=== PATIENT | female | born 1950 | race Caucasian/White ===

== ENCOUNTER 2018-11-20 07:28 | Day surgery (SDC) | payer MEDICARE, MEDICAID ==
[~2018-11-20] VITALS: Ht 157.5 cm; Wt 106.2 kg
[2018-11-20 08:00] VITALS: BP 140/67
[2018-11-20] MEDS ORDERED: normal saline 1000ml 1,000 ML IV PRN (08:05)
[2018-11-20 08:28] LABS: HEMATOCRIT 32.2 % (35.0-45.0); MEAN CORPUSCULAR HGB CONC 33.1 g/dL (33.0-36.5); WHITE BLOOD COUNT 3.5 X10'3 (4.5-11.0)
[2018-11-20 08:30] LABS: HEMOGLOBIN 10.6 g/dl (12.0-16.0); MEAN CORPUSCULAR VOLUME 96.6 FL (78-98); PLATELET COUNT 70 X10'3 (140-440); RED BLOOD COUNT 3.33 X10'6 (4.20-5.60); RED CELL DISTRIBUTION WIDTH 18.3 % (11.5-14.5)
[2018-11-20 08:34] LABS: ALBUMIN 3.4 G/DL (3.4-5.0); ANION GAP 6 (8-16); BLOOD UREA NITROGEN 42 MG/DL (7-18); BUN/CREATININE RATIO 8.5 (6.6-38.0); CALCIUM 8.4 MG/DL (8.5-10.1); CHLORIDE 103 MMOL/L (99-107); CREATININE 4.95 MG/DL (0.40-0.90); GLUCOSE 338 MG/DL (70-104); POTASSIUM 4.4 MMOL/L (3.5-5.1); SODIUM 143 MMOL/L (135-145); TOTAL CARBON DIOXIDE 34.4 MMOL/L (24-32); eGFR 9 ML/MIN
[2018-11-20] MEDS ORDERED: AMLO2.5T4 PO (09:18)
[2018-11-20 09:27] LABS: ANISOCYTOSIS 2+; PLATELET ESTIMATE DECREASED; STOMATOCYTES 1+; TOTAL CELLS COUNTED 100
[2018-11-20] MEDS ORDERED: SEVE800T7 PO (09:30)
[2018-11-20] MEDS ORDERED: DOXA2TAB2 PO (09:30)
[2018-11-20] MEDS ORDERED: HYDR-3686 PO (09:30)
[2018-11-20] MEDS ORDERED: AMLO2.5T2 PO (09:30)
[2018-11-20] MEDS ORDERED: FAMO20TA8 PO (09:30)
[2018-11-20] MEDS ORDERED: ROPI2TAB29 PO (09:30)
[2018-11-20] MEDS ORDERED: TIZA4CAP6 PO (09:30)
[2018-11-20] MEDS ORDERED: LYR75C PO ×2 (09:30)
[2018-11-20] MEDS ORDERED: ATOR40TA PO (09:30)
[2018-11-20] MEDS ORDERED: ALLO100T PO (09:36)
[2018-11-20] MEDS ORDERED: BENA10TA74 PO (09:36)
[2018-11-20] MEDS ORDERED: INSU100V13 SQ (09:36)
[2018-11-20] MEDS ORDERED: ASPI-1265 PO (09:36)
[2018-11-20] MEDS ORDERED: midazolam 2 mg/2 ml injection ONE (11:15)
[2018-11-20] MEDS ORDERED: fentaNYL/PF 50MCG/1 ML 2ML syringe ONE (11:15)
[2018-11-20] MEDS ORDERED: midazolam 2 mg/2 ml injection IV PRN (11:15)
[2018-11-20] MEDS ORDERED: LIDOcaine 1% (10mg/ml) 2ml vial SQ ONE (11:15)
[2018-11-20] MEDS ORDERED: LIDOcaine 1%/PF 5ML 10 MG/ML VIAL ONE (11:15)
[2018-11-20] MEDS ORDERED: fentaNYL/PF 50MCG/1 ML 2ML syringe IV PRN (11:15)
[2018-11-20] MEDS ORDERED: heparin 1,000 UNITS/NS 500ml 500 ML ICATH ONE (11:15)
[2018-11-20] MEDS ORDERED: heparin 1,000 UNITS/NS 500ml 500 ML ONE (11:16)
[2018-11-20] MEDS ORDERED: iohexol 300mg/ml 100ml inj. ONE (11:16)
[2018-11-20 12:47] VITALS: BP 134/84
[2018-11-20 13:00] VITALS: BP 167/76
[2018-11-20 13:15] VITALS: BP 169/73
[2018-11-20 13:45] VITALS: BP 137/52
[2018-11-20 14:15] VITALS: BP 139/54
== END 2018-11-20 15:10 | disposition home or self-care (01) ==
LOC: SSTAY O 07:28
PROVIDERS: ATTEND Radiology Vascular & Interventional Radiology
DX: T82.858A Stenosis of other vascular prosthetic devices, implants and grafts, initial encounter (principal); Y83.8 Other surgical procedures as the cause of abnormal reaction of the patient, or of later complication, without mention of misadventure at the time of the procedure; E11.9 Type 2 diabetes mellitus without complications; I25.10 Atherosclerotic heart disease of native coronary artery without angina pectoris; I10 Essential (primary) hypertension; E66.9 Obesity, unspecified; Z95.1 Presence of aortocoronary bypass graft; Z79.82 Long term (current) use of aspirin; Z79.899 Other long term (current) drug therapy; Z98.49 Cataract extraction status, unspecified eye; Z96.1 Presence of intraocular lens
CPT/HCPCS: 36415; 36901; 80048; 85025; 85610; 99152; 99153; C1769; J1644; J2250; J3010; J7030; Q9967

== ENCOUNTER 2018-11-22 11:30 | Day surgery (SDC) | payer MEDICARE, MEDICAID ==
[~2018-11-22] VITALS: Ht 162.6 cm; Wt 105.4 kg
[2018-11-22] VITALS (8 sets, daily range): BP systolic 116–198; BP diastolic 56–100
[~2018-11-22 11:30] MED LIST: ALLO100T PO; AMLO2.5T2 PO; ASPI-1265 PO; ATOR40TA PO; BENA10TA74 PO; DOXA2TAB2 PO; FAMO20TA8 PO; HYDR-3686 PO; INSU100V13 SQ; LYR75C PO; ROPI2TAB29 PO; SEVE800T7 PO; TIZA4CAP6 PO
[2018-11-22] MEDS ORDERED: normal saline 1000ml 1,000 ML IV PRN (11:55)
[2018-11-22 12:34] LABS: BASOPHILS % (AUTO) 0.3 % (0-1); EOSINOPHILS # (AUTO) 0.1 X10'3 (0-0.9); EOSINOPHILS % (AUTO) 3.5 % (0-6); HEMATOCRIT 33.2 % (35.0-45.0); LYMPHOCYTES % (AUTO) 25.8 % (21-51); MEAN CORPUSCULAR HEMOGLOBIN 32.5 PG (27.0-31.0); MEAN CORPUSCULAR VOLUME 98.4 FL (78-98); MONOCYTES # (AUTO) 0.4 X10'3 (0-0.9); MONOCYTES % (AUTO) 10.5 % (2-12); NEUTROPHILS # (AUTO) 2.3 X10'3 (1.8-7.7); NEUTROPHILS % (AUTO) 59.9 % (42-75); PLATELET COUNT 84 X10'3 (140-440); RED BLOOD COUNT 3.38 X10'6 (4.20-5.60); RED CELL DISTRIBUTION WIDTH 18.3 % (11.5-14.5); WHITE BLOOD COUNT 3.8 X10'3 (4.5-11.0)
[2018-11-22 12:48] LABS: ALBUMIN 3.4 G/DL (3.4-5.0); ANION GAP 7 (8-16); BLOOD UREA NITROGEN 36 MG/DL (7-18); BUN/CREATININE RATIO 6.3 (6.6-38.0); CALCIUM 8.4 MG/DL (8.5-10.1); CHLORIDE 102 MMOL/L (99-107); CREATININE 5.73 MG/DL (0.40-0.90); GLUCOSE 337 MG/DL (70-104); POTASSIUM 4.2 MMOL/L (3.5-5.1); SODIUM 142 MMOL/L (135-145); TOTAL CARBON DIOXIDE 33.5 MMOL/L (24-32); eGFR 7 ML/MIN
[2018-11-22] MEDS ORDERED: fentaNYL/PF 50MCG/1 ML 2ML syringe IV PRN (12:50)
[2018-11-22] MEDS ORDERED: midazolam 2 mg/2 ml injection IV PRN (12:50)
[2018-11-22] MEDS ORDERED: LIDOcaine 1%/PF 5ML 10 MG/ML VIAL SQ ONE (12:50)
[2018-11-22] MEDS ORDERED: heparin 1,000 UNITS/NS 500ml 500 ML ICATH ONE (12:50)
[2018-11-22 13:17] LABS: PLATELET ESTIMATE DECREASED; TOTAL CELLS COUNTED 100
[2018-11-22 13:18] LABS: ANISOCYTOSIS 2+
[2018-11-22 13:19] LABS: POLYCHROMASIA FEW; STOMATOCYTES FEW
[2018-11-22] MEDS ORDERED: midazolam 2 mg/2 ml injection ONE ×2 (13:34→15:14)
[2018-11-22] MEDS ORDERED: heparin 1,000unit/ml 10ml vial 10 ML ONE (13:34)
[2018-11-22] MEDS ORDERED: LIDOcaine 1%/PF 5ML 10 MG/ML VIAL ONE (13:34)
[2018-11-22] MEDS ORDERED: fentaNYL/PF 50MCG/1 ML 2ML syringe ONE ×2 (13:35→15:14)
[2018-11-22] MEDS ORDERED: heparin 1,000 UNITS/NS 500ml 500 ML ONE ×2 (13:35→15:45)
[2018-11-22] MEDS ORDERED: iohexol 300 MG/1 ML 50ml polymer ONE (13:35)
[2018-11-22] MEDS ORDERED: iohexol 300mg/ml 100ml inj. ONE ×3 (13:35→15:47)
[2018-11-22] MEDS ORDERED: amLODIPine 5mg tablet PO SCH (18:01)
[2018-11-22] MEDS ORDERED: lisinopril 10 MG tablet PO SCH (18:02)
== END 2018-11-22 18:45 | disposition home or self-care (01) ==
LOC: SSTAY O 11:30
PROVIDERS: ATTEND Radiology Vascular & Interventional Radiology
DX: T82.858A Stenosis of other vascular prosthetic devices, implants and grafts, initial encounter (principal); Y83.2 Surgical operation with anastomosis, bypass or graft as the cause of abnormal reaction of the patient, or of later complication, without mention of misadventure at the time of the procedure; Y92.89 Other specified places as the place of occurrence of the external cause; I77.0 Arteriovenous fistula, acquired; I12.0 Hypertensive chronic kidney disease with stage 5 chronic kidney disease or end stage renal disease; N18.6 End stage renal disease; F17.210 Nicotine dependence, cigarettes, uncomplicated; Z88.8 Allergy status to other drugs, medicaments and biological substances; Z79.4 Long term (current) use of insulin; Z79.82 Long term (current) use of aspirin; Z79.899 Other long term (current) drug therapy
CPT/HCPCS: 36415; 36903; 80048; 82948; 85025; 85610; 99152; 99153; C1725; C1769; C1876; C1894; J1644; J2250; J3010; J7030; Q9967

== ENCOUNTER 2018-11-23 12:08 | Day surgery (SDC) | payer MEDICARE, MEDICAID ==
[~2018-11-23] VITALS: Ht 162.6 cm; Wt 106.6 kg
[2018-11-23 12:30] VITALS: BP 148/69
[2018-11-23] MEDS ORDERED: normal saline 1000ml 1,000 ML IV PRN (12:40)
[2018-11-23] MEDS ORDERED: heparin 1,000 units/ml 10ml inj ICATH ONE (13:30)
[2018-11-23] MEDS ORDERED: fentaNYL/PF 50MCG/1 ML 2ML syringe IV PRN (13:30)
[2018-11-23] MEDS ORDERED: midazolam 2 mg/2 ml injection IV PRN (13:30)
[2018-11-23] MEDS ORDERED: LIDOcaine 1%/PF 5ML 10 MG/ML VIAL ONE (13:37)
[2018-11-23] MEDS ORDERED: heparin 1,000unit/ml 10ml vial 10 ML ONE (13:37)
[2018-11-23] MEDS ORDERED: fentaNYL/PF 50MCG/1 ML 2ML syringe ONE (13:37)
[2018-11-23] MEDS ORDERED: midazolam 2 mg/2 ml injection ONE (13:37)
[2018-11-23 14:36] VITALS: BP 167/82
[2018-11-23 14:45] VITALS: BP 158/84
[2018-11-23 15:00] VITALS: BP 152/84
[2018-11-23 15:15] VITALS: BP 123/67
[2018-11-23 15:30] VITALS: BP 136/72
== END 2018-11-23 15:45 | disposition home or self-care (01) ==
LOC: SSTAY O 12:08
PROVIDERS: ATTEND Radiology Diagnostic Radiology
DX: T82.868A Thrombosis due to vascular prosthetic devices, implants and grafts, initial encounter (principal); E11.22 Type 2 diabetes mellitus with diabetic chronic kidney disease; N18.9 Chronic kidney disease, unspecified; I25.10 Atherosclerotic heart disease of native coronary artery without angina pectoris; Y83.8 Other surgical procedures as the cause of abnormal reaction of the patient, or of later complication, without mention of misadventure at the time of the procedure; Z79.82 Long term (current) use of aspirin; Z79.899 Other long term (current) drug therapy; Z88.8 Allergy status to other drugs, medicaments and biological substances; Z79.4 Long term (current) use of insulin; Z95.1 Presence of aortocoronary bypass graft; Z95.5 Presence of coronary angioplasty implant and graft; Z98.890 Other specified postprocedural states
CPT/HCPCS: 36558; 76937; 77001; 99152; 99153; C1750; C1894; J1644; J2250; J3010; J7030; A9270

== ENCOUNTER 2018-12-08 15:42 | Inpatient (IN) | payer MEDICARE, MEDICAID ==
[~2018-12-08] VITALS: Ht 157.5 cm; Wt 103.7 kg
[2018-12-08] MEDS ORDERED: HYDROmorphone 2mg/ml vial IM STA (16:48)
[2018-12-08] MEDS ORDERED: HYDROmorphone 1 mg/ml syringe IM STA (16:53)
--- NOTE | 2018-12-08 18:05 | NUR ---
POC: wanted to see patient's record from [facility] from recent visit-per patient.
[2018-12-08] MEDS ORDERED: ondansetron 4mg rapidly disintigrating tab PO ONE (18:40)
--- NOTE | 2018-12-08 18:41 | NUR ---
PT BRADYCARDIC IN 40S, PT LETHARGIC AND DRIFTS OFF TO SLEEP MID SENTENCE. UNKNOWN IF BRADYCARDIA IS PT NORMAL. EKG ORDERED PER PROTOCOL.
[2018-12-08 18:44] LABS: BASOPHILS # (AUTO) 0.1 X10'3 (0-0.2); BASOPHILS % (AUTO) 1.2 % (0-1); EOSINOPHILS # (AUTO) 0.1 X10'3 (0-0.9); EOSINOPHILS % (AUTO) 2.7 % (0-6); HEMATOCRIT 28.6 % (35.0-45.0); HEMOGLOBIN 9.4 g/dl (12.0-16.0); LYMPHOCYTES # (AUTO) 1.1 X10'3 (1.1-4.8); LYMPHOCYTES % (AUTO) 20.2 % (21-51); MEAN CORPUSCULAR HEMOGLOBIN 32.3 PG (27.0-31.0); MEAN CORPUSCULAR HGB CONC 32.9 g/dL (33.0-36.5); MEAN PLATELET VOLUME 9.5 FL (7.4-10.4); MONOCYTES # (AUTO) 0.5 X10'3 (0-0.9); NEUTROPHILS # (AUTO) 3.5 X10'3 (1.8-7.7); NEUTROPHILS % (AUTO) 65.9 % (42-75); PLATELET COUNT 116 X10'3 (140-440); RED BLOOD COUNT 2.92 X10'6 (4.20-5.60); RED CELL DISTRIBUTION WIDTH 18.7 % (11.5-14.5); WHITE BLOOD COUNT 5.2 X10'3 (4.5-11.0)
[2018-12-08 18:51] LABS: ALANINE AMINOTRANSFERASE 18 U/L (12-78); ALBUMIN 3.3 G/DL (3.4-5.0); ALKALINE PHOSPHATASE 121 IU/L (46-116); ANION GAP 9 (8-16); ASPARTATE AMINO TRANSFERASE 12 U/L (10-37); BILIRUBIN,TOTAL 0.9 MG/DL (0.1-1.0); BLOOD UREA NITROGEN 39 MG/DL (7-18); BUN/CREATININE RATIO 6.5 (6.6-38.0); CALCIUM 8.5 MG/DL (8.5-10.1); CHLORIDE 100 MMOL/L (99-107); CREATININE 6.03 MG/DL (0.40-0.90); POTASSIUM 5.9 MMOL/L (3.5-5.1); SODIUM 138 MMOL/L (135-145); TOTAL CARBON DIOXIDE 29.1 MMOL/L (24-32); TOTAL PROTEIN 6.6 G/DL (6.4-8.2); eGFR 7 ML/MIN
[2018-12-08 18:53] LABS: PARTIAL THROMBOPLASTIN TIME 26 SECONDS (22-32)
[2018-12-08 18:57] LABS: GLUCOSE 467 MG/DL (70-104)
[2018-12-08] MEDS ORDERED: ondansetron/PF 4mg/2ml inj IV PRN (20:25)
[2018-12-08] MEDS ORDERED: acetaminophen 325mg tablet PO PRN (20:25)
[2018-12-08 20:45] LABS: ANISOCYTOSIS 2+; PLATELET ESTIMATE DECREASED; POLYCHROMASIA FEW
[2018-12-08 20:46] LABS: STOMATOCYTES FEW; TEAR DROP CELLS FEW
--- NOTE | 2018-12-08 21:45 | NUR ---
NOTIFIED WILMOT BLINDMAKER OF PT 2 CONSECUTIVE HIGH BG WITH NO HYPERGLYCEMIC PROTOCOL ORDERS PLACED. WILMOT ORDERED HYPERGLYCEMIC PROTOCOL
[2018-12-08] MEDS ORDERED: dextrose ORAL solution 15 GM/59 ML bottle PO PRN ×2 (22:35)
[2018-12-08] MEDS ORDERED: dextrose 50%-water 50ml dispensing syringe IV PRN ×2 (22:35)
[2018-12-08] MEDS ORDERED: MESSAGE TO PHARMACY PO ONE (22:35)
[2018-12-08] MEDS ORDERED: glucagon, human recombinant 1mg kit SUBCUT PRN (22:35)
[2018-12-08] MEDS: insulin glargine (Lantus) pen - multi-dose SQ SCH (23:07)
[2018-12-08] MEDS: HYDROcodone/acetaminophen 5mg/325mg tablet PO PRN (23:23)
[2018-12-09] VITALS (7 sets, daily range): BP systolic 105–153; BP diastolic 40–88
--- NOTE | 2018-12-09 | NUR ---
Patient in room PCU 3015. I have received report from Marie MIDDLETON RN and had the opportunity to ask questions and assume patient care.
--- NOTE | 2018-12-09 00:40 | NUR ---
Pt arrived fr/ED via gurney in acute distress. R arm extremely swollen fr/FA to upper arm 4+ edema w/hematoma throughout. Pt also C/O R shoulder discomfort and has minimal movement ability in R arm. R shoulder and arm elevated on pillow to assist in comfort attempts. Pt. able to roll f/positioning and is alert when awake and oriented to place, time and person. Telemetry unit placed and MRSA swab obtained. Pt. oriented to bed, surroundings, and POC.
--- NOTE | 2018-12-09 01:59 | NUR ---
Pt. noted to have poor pain control, moaning and hypersensitive to all touch and attempts to move or reposition. Garage Worker HAND SPINNER notified of this as well as VS: HR Sinus Jorge in 50s and high 40s, w/1st degree HB and BBB, BP 105/45. Blood sugar and treatment plan also reported. Med req reviewed and HAND SPINNER notified of this status.
--- NOTE | 2018-12-09 02:00 | NUR ---
No new orders given.
[2018-12-09] MEDS: HYDROcodone/acetaminophen 5mg/325mg tablet PO PRN ×3 (04:00→21:08)
[2018-12-09 06:27] LABS: BASOPHILS # (AUTO) 0.1 X10'3 (0-0.2); BASOPHILS % (AUTO) 1.4 % (0-1); EOSINOPHILS # (AUTO) 0.1 X10'3 (0-0.9); EOSINOPHILS % (AUTO) 1.9 % (0-6); HEMATOCRIT 26.6 % (35.0-45.0); HEMOGLOBIN 8.8 g/dl (12.0-16.0); LYMPHOCYTES % (AUTO) 19.2 % (21-51); MEAN CORPUSCULAR HEMOGLOBIN 32.8 PG (27.0-31.0); MEAN CORPUSCULAR HGB CONC 33.1 g/dL (33.0-36.5); MEAN CORPUSCULAR VOLUME 99.2 FL (78-98); MEAN PLATELET VOLUME 9.8 FL (7.4-10.4); MONOCYTES # (AUTO) 0.5 X10'3 (0-0.9); MONOCYTES % (AUTO) 9.8 % (2-12); NEUTROPHILS # (AUTO) 3.6 X10'3 (1.8-7.7); NEUTROPHILS % (AUTO) 67.7 % (42-75); PLATELET COUNT 110 X10'3 (140-440); RED BLOOD COUNT 2.68 X10'6 (4.20-5.60); WHITE BLOOD COUNT 5.3 X10'3 (4.5-11.0)
--- NOTE | 2018-12-09 06:39 | NUR ---
Problems reprioritized. Patient report given, questions answered & plan of care reviewed with Liz LOPEZ.
[2018-12-09 06:45] LABS: ALANINE AMINOTRANSFERASE 15 U/L (12-78); ALBUMIN 3.2 G/DL (3.4-5.0); ALKALINE PHOSPHATASE 98 IU/L (46-116); ANION GAP 9 (8-16); ASPARTATE AMINO TRANSFERASE 15 U/L (10-37); BILIRUBIN,TOTAL 0.9 MG/DL (0.1-1.0); BLOOD UREA NITROGEN 42 MG/DL (7-18); BUN/CREATININE RATIO 6.1 (6.6-38.0); CALCIUM 8.3 MG/DL (8.5-10.1); CHLORIDE 101 MMOL/L (99-107); CREATININE 6.85 MG/DL (0.40-0.90); GLUCOSE 334 MG/DL (70-104); MAGNESIUM 2.2 MG/DL (1.5-2.4); PHOSPHORUS 5.7 MG/DL (2.3-4.5); POTASSIUM 5.6 MMOL/L (3.5-5.1); SODIUM 140 MMOL/L (135-145); TOTAL CARBON DIOXIDE 30.5 MMOL/L (24-32); TOTAL PROTEIN 6.3 G/DL (6.4-8.2); eGFR 6 ML/MIN
[2018-12-09] MEDS: insulin Lispro (HumaLOG) vial - multi-dose SQ SCH ×3 (09:19→19:33)
[2018-12-09] MEDS ORDERED: dextrose ORAL solution 15 GM/59 ML bottle PO PRN ×2 (10:05)
[2018-12-09] MEDS ORDERED: insulin Lispro (HumaLOG) vial - multi-dose SQ SCH (10:05)
[2018-12-09] MEDS ORDERED: glucagon, human recombinant 1mg kit SUBCUT PRN (10:05)
[2018-12-09] MEDS ORDERED: MESSAGE TO PHARMACY PO ONE (10:05)
[2018-12-09] MEDS ORDERED: dextrose 50%-water 50ml dispensing syringe IV PRN ×2 (10:05)
[2018-12-09] MEDS ORDERED: ROPINIROLE HCL 2 MG PO PRN (10:20)
[2018-12-09] MEDS ORDERED: ROPINIRole 1mg tablet PO ONE (12:50)
[2018-12-09] MEDS: sevelamer carbonate 800mg tablet PO SCH ×2 (13:00→18:03)
[2018-12-09] MEDS ORDERED: HYDR-4383 PO (13:43)
--- NOTE | 2018-12-09 15:22 | NUR ---
DM Consult: A1C 10.4. GLU down to 239 from 467 on admit. Pt seen by RD for written/verbal DM education w/ RD contact information provided. Pt states does not know what her A1C is or last time had it checked. When RD inquired further about DM management pt suddenly became quite sleepy and no longer responded. Pt admit w/ pseudoaneurysm to AV fistula sight and significant swelling. Hx missing HD last Monday, T2DM, HTN, and gastric sleeve. R arm +4 severe pitting edema present. On Phos binder w/ HD. PO 100% clear liquids; will monitor for diet advancement per MD. [facility]BM 12/08. Rec: 1. advance to carb controlled/renal diet per MD 2. monitor for ONS needs 3. wt w/ HD Addendum: 12/09/18 at [address] Amended: Links added.
[2018-12-09] MEDS ORDERED: iohexol 350MG/ML 100ml bottle IV ONE (15:59)
--- NOTE | 2018-12-09 19:01 | NUR ---
Patient in room PCU 3015b. I have received report from JOHN Hill and had the opportunity to ask questions and assume patient care. Patient observed to be quite drowsy but able to respond appropriately to questions and consuming evening meal. Will continue to monitor closely.
[2018-12-09] MEDS: famotidine 20mg tablet PO SCH (19:34)
[2018-12-09] MEDS ORDERED: ROPINIRole 1mg tablet PO SCH (21:00)
[2018-12-09] MEDS ORDERED: insulin glargine (Lantus) pen - multi-dose SQ SCH (21:00)
[2018-12-09] MEDS: ROPINIRole 1mg tablet PO PRN (21:07)
--- NOTE | 2018-12-09 22:06 | NUR ---
Informed by licensed chemical spray technician that patient had HR drop down to 35 and unsustained. Informed by day shift RN that HR fell to 39, also unsustained. Patient asymptomatic and resting comfortably. Will continue to monitor closely.
[2018-12-09] MEDS ORDERED: HYDROcodone/acetaminophen 5mg/325mg tablet PO ONE (23:00)
--- NOTE | 2018-12-09 23:00 | NUR ---
Patient continues to complain of severe pain in right arm. Contacted music grapher, Osmel Katz NP and new orders for Oxly 5 once and Oxly 10 q 4hr PRN severe pain. Will continue to monitor closely.
[2018-12-10] VITALS (19 sets, daily range): BP systolic 98–156; BP diastolic 28–63
--- NOTE | 2018-12-10 02:48 | NUR ---
Sustained HR in mid 30's. Patient is asymptomatic. Osmel Katz NP notified about HR and no new orders at this time. Will continue to monitor closely.
[2018-12-10] MEDS: HYDROcodone/acetaminophen 10/325mg tab PO PRN ×5 (04:35→23:02)
[2018-12-10] MEDS ORDERED: DOPamine 400mg/D5W 250ml 250 ML IV SCH (05:40)
[2018-12-10 06:01] LABS: BASOPHILS # (AUTO) 0.1 X10'3 (0-0.2); BASOPHILS % (AUTO) 1.1 % (0-1); EOSINOPHILS # (AUTO) 0.1 X10'3 (0-0.9); EOSINOPHILS % (AUTO) 2.1 % (0-6); HEMATOCRIT 28.6 % (35.0-45.0); HEMOGLOBIN 9.4 g/dl (12.0-16.0); LYMPHOCYTES # (AUTO) 1.1 X10'3 (1.1-4.8); LYMPHOCYTES % (AUTO) 19.5 % (21-51); MEAN CORPUSCULAR HEMOGLOBIN 32.6 PG (27.0-31.0); MEAN CORPUSCULAR HGB CONC 32.9 g/dL (33.0-36.5); MEAN CORPUSCULAR VOLUME 99.3 FL (78-98); MEAN PLATELET VOLUME 9.2 FL (7.4-10.4); MONOCYTES # (AUTO) 0.5 X10'3 (0-0.9); MONOCYTES % (AUTO) 8.7 % (2-12); NEUTROPHILS # (AUTO) 3.9 X10'3 (1.8-7.7); NEUTROPHILS % (AUTO) 68.6 % (42-75); PLATELET COUNT 108 X10'3 (140-440); RED BLOOD COUNT 2.88 X10'6 (4.20-5.60); RED CELL DISTRIBUTION WIDTH 19.3 % (11.5-14.5); WHITE BLOOD COUNT 5.7 X10'3 (4.5-11.0)
--- NOTE | 2018-12-10 06:20 | NUR ---
OBSERVED NIGHTLY PRINT OUT OF EKG STRIP AND DETERMINED THAT PATIENT WAS IN 3 DEGREE HEART BLOCK PER INDIVIDUAL NURSING JUDGEMENT AND WITH COLLABORATION OF BELT FIXER. AUGUSTO PINEDA NP NOTIFIED OF NEW CHANGE AND NEW ORDERS FOR 3 MCGS/KG/MIN OF DOPAMINE IV. PATIENT IS ON MOBILE 61. STILL COMPLAINING OF PAIN YET REMAINS ASYMPTOMATIC AT THIS TIME.
[2018-12-10 06:29] LABS: ALANINE AMINOTRANSFERASE 13 U/L (12-78); ALBUMIN 3.3 G/DL (3.4-5.0); ALKALINE PHOSPHATASE 94 IU/L (46-116); ANION GAP 13 (8-16); ASPARTATE AMINO TRANSFERASE 17 U/L (10-37); BILIRUBIN,TOTAL 0.9 MG/DL (0.1-1.0); BLOOD UREA NITROGEN 49 MG/DL (7-18); BUN/CREATININE RATIO 6.5 (6.6-38.0); CALCIUM 8.5 MG/DL (8.5-10.1); CHLORIDE 98 MMOL/L (99-107); CREATININE 7.55 MG/DL (0.40-0.90); GLUCOSE 136 MG/DL (70-104); MAGNESIUM 2.1 MG/DL (1.5-2.4); PHOSPHORUS 6.8 MG/DL (2.3-4.5); SODIUM 137 MMOL/L (135-145); TOTAL CARBON DIOXIDE 25.9 MMOL/L (24-32); TOTAL PROTEIN 6.5 G/DL (6.4-8.2); eGFR 5 ML/MIN
[2018-12-10 06:39] LABS: POTASSIUM 6.5 MMOL/L (3.5-5.1)
--- NOTE | 2018-12-10 06:45 | NUR ---
Patient in room PCU 3015. I have received report from Alex LOPEZ and had the opportunity to ask questions and assume patient care. Patient awake in bed. All immediate needs met at this time.
--- NOTE | 2018-12-10 06:48 | NUR ---
Problems reprioritized. Patient report given, questions answered & plan of care reviewed with JOHN PARKER AND JOHN LAMB.
--- NOTE | 2018-12-10 06:51 | NUR ---
Critical lab: Potassium 6.5. Osmel Katz notified by phone. No new orders at this time.
[2018-12-10] MEDS ORDERED: epoetin 20,000 units/ml inj IV ONE (08:00)
[2018-12-10] MEDS ORDERED: normal saline 1000ml 250 ML IV PRN (08:00)
[2018-12-10] MEDS ORDERED: heparin 1,000 units/ml 10ml inj HE ONE ×3 (08:00→15:45)
[2018-12-10] MEDS: famotidine 20mg tablet PO SCH ×2 (08:24→20:00)
[2018-12-10] MEDS: pregabalin 75mg capsule PO SCH (08:25)
[2018-12-10] MEDS: sevelamer carbonate 800mg tablet PO SCH ×3 (08:28→17:30)
[2018-12-10] MEDS: insulin Lispro (HumaLOG) vial - multi-dose SQ SCH (08:33)
--- NOTE | 2018-12-10 09:21 | NUR ---
Per Dr. Simpson, discontinue dopamine gtt.
[2018-12-10 09:52] LABS: ANISOCYTOSIS 2+; PLATELET ESTIMATE DECREASED
[2018-12-10 09:53] LABS: POLYCHROMASIA 1+
[2018-12-10] MEDS: ringers solution, lacted 1,000 ML IV SCH (13:10)
[2018-12-10] MEDS ORDERED: famotidine/PF 10 mg/ml inj IV ONE (14:00)
[2018-12-10] MEDS ORDERED: ringers solution, lacted 1,000 ML IV SCH ×2 (14:04→15:58)
[2018-12-10] MEDS ORDERED: morphine 4 MG/ML inj SYRINge IV PRN ×4 (14:05→16:00)
[2018-12-10] MEDS ORDERED: meperidine/PF 25mg/ml syringe IV PRN (14:05)
[2018-12-10] MEDS ORDERED: proCHLORperazine 10 MG/2 ml inj IV PRN (14:05)
[2018-12-10] MEDS ORDERED: ondansetron/PF 4mg/2ml inj IV PRN ×2 (14:05→16:00)
[2018-12-10] MEDS ORDERED: BUPIVAcaine/PF 2.5 mg/ml (0.25%) 30ml vial ONE (15:33)
[2018-12-10] MEDS ORDERED: heparin 10,000 units/1 ML INJ ONE (15:33)
[2018-12-10 15:38] LABS: ALANINE AMINOTRANSFERASE 17 U/L (12-78); ALBUMIN 3.2 G/DL (3.4-5.0); ALKALINE PHOSPHATASE 97 IU/L (46-116); ANION GAP 8 (8-16); ASPARTATE AMINO TRANSFERASE 29 U/L (10-37); BILIRUBIN,TOTAL 1.1 MG/DL (0.1-1.0); BLOOD UREA NITROGEN 23 MG/DL (7-18); BUN/CREATININE RATIO 5.1 (6.6-38.0); CALCIUM 7.9 MG/DL (8.5-10.1); CHLORIDE 102 MMOL/L (99-107); CREATININE 4.55 MG/DL (0.40-0.90); GLUCOSE 117 MG/DL (70-104); POTASSIUM 5.1 MMOL/L (3.5-5.1); SODIUM 139 MMOL/L (135-145); TOTAL CARBON DIOXIDE 28.7 MMOL/L (24-32); TOTAL PROTEIN 6.4 G/DL (6.4-8.2); eGFR 10 ML/MIN
[2018-12-10] MEDS ORDERED: fentaNYL/PF 50MCG/1 ML 2ML syringe IV PRN ×2 (16:00)
[2018-12-10] MEDS ORDERED: enalaprilat dihydrate 2.5mg/2ml vial IV PRN (16:00)
[2018-12-10] MEDS ORDERED: hydrALAZINE 20mg/ml inj. IV PRN (16:00)
[2018-12-10] MEDS ORDERED: MIDAZolam 5mg/5ml vial ONE (16:32)
[2018-12-10] MEDS ORDERED: etomidate 2mg/ml inj. ONE (16:32)
[2018-12-10] MEDS ORDERED: fentaNYL/PF 50MCG/1 ML 2ML syringe ONE (16:32)
[2018-12-10] MEDS ORDERED: sevoflurane 250ml liquid IH ONE (16:42)
[2018-12-10] MEDS ORDERED: atropine 0.4 mg/ml 20ml vial ONE (17:08)
[2018-12-10] MEDS ORDERED: vancomycin 1,000mg inj ONE (17:24)
--- NOTE | 2018-12-10 18:22 | NUR ---
Problems reprioritized. Patient report given, questions answered & plan of care reviewed with Alex LOPEZ. Patient in OR during transfer of care.
--- NOTE | 2018-12-10 18:28 | NUR ---
Patient in room PCU 3015b. I have received report from Korina RN and Ruth RN and had the opportunity to ask questions and assume patient care. Patient in OR at this time. Will place on continuous pulse oximetry and telemetry number [id number] upon return from OR.
--- NOTE | 2018-12-10 18:35 | NUR ---
ADMITTED TO PACU FROM OR ACCOMPANIED BY ANESTHESIA. INTIAL PHYSICAL ASSESSMENT DONE AND RECORDED. AWAKE AND RESPONSE ON ARRIVE YO PACU, REPORT RECEIVED FROM ANESTHESIA.
--- NOTE | 2018-12-10 18:40 | NUR ---
Orientee documentation: I have reviewed and agree with all interventions, assessments performed and documented by JOHN Miranda. Orientee Medication Administration: For this medication-pass time frame, all medication were reviewed, dispensed, administered and documented per hospital policy by JOHN Miranda.
--- NOTE | 2018-12-10 19:25 | NUR ---
PACU DISCHARGE CRITERIA MET, REPORT GIVEN TO FLOOR. DENIES PAIN OR DISCOMFORT, TRANSFERRED TO ROOM IN STABLE GOOD CONDITION.
--- NOTE | 2018-12-10 19:31 | NUR ---
Patient returned to PCU at 1910. Patient alert and oriented to self, place/events. VS stable, 50 mL/hr LR infusing per provider order, and on 3L NC at 93%. Will continue to monitor closely.
[2018-12-10] MEDS: insulin glargine (Lantus) pen - multi-dose SQ SCH (21:36)
--- NOTE | 2018-12-10 22:10 | NUR ---
Problems reprioritized. Patient report given, questions answered & plan of care reviewed with Alyssa RN on [facility] surgical unit. Patient transferred by wheel chair with patient specific medication from [facility], all personal belongings including cell phone and trapeze performer to bed 340B. 20G L AC patent and asymptomatic with 50 mL/hr LR.
[2018-12-11] MEDS ORDERED: HYDROmorphone inj. 0.5 MG/0.5 ML DISP.SYRIN IV PRN (00:10)
[2018-12-11 00:30] VITALS: BP 129/47
[2018-12-11] MEDS: HYDROcodone/acetaminophen 10/325mg tab PO PRN ×4 (01:31→21:18)
[2018-12-11 02:10] VITALS: BP 106/63
[2018-12-11 04:39] LABS: BASOPHILS # (AUTO) 0.1 X10'3 (0-0.2); BASOPHILS % (AUTO) 1.3 % (0-1); EOSINOPHILS # (AUTO) 0.1 X10'3 (0-0.9); EOSINOPHILS % (AUTO) 2.4 % (0-6); HEMATOCRIT 24.2 % (35.0-45.0); LYMPHOCYTES # (AUTO) 1.1 X10'3 (1.1-4.8); LYMPHOCYTES % (AUTO) 23.2 % (21-51); MEAN CORPUSCULAR HEMOGLOBIN 33.1 PG (27.0-31.0); MEAN CORPUSCULAR HGB CONC 33.1 g/dL (33.0-36.5); MEAN PLATELET VOLUME 9.3 FL (7.4-10.4); MONOCYTES # (AUTO) 0.5 X10'3 (0-0.9); MONOCYTES % (AUTO) 11.1 % (2-12); PLATELET COUNT 99 X10'3 (140-440); RED BLOOD COUNT 2.43 X10'6 (4.20-5.60); RED CELL DISTRIBUTION WIDTH 19.8 % (11.5-14.5); WHITE BLOOD COUNT 4.8 X10'3 (4.5-11.0)
[2018-12-11 04:48] LABS: ALANINE AMINOTRANSFERASE 16 U/L (12-78); ALBUMIN 2.9 G/DL (3.4-5.0); ALKALINE PHOSPHATASE 85 IU/L (46-116); ANION GAP 7 (8-16); ASPARTATE AMINO TRANSFERASE 22 U/L (10-37); BLOOD UREA NITROGEN 27 MG/DL (7-18); CALCIUM 7.7 MG/DL (8.5-10.1); CHLORIDE 101 MMOL/L (99-107); CREATININE 5.43 MG/DL (0.40-0.90); GLUCOSE 119 MG/DL (70-104); MAGNESIUM 1.9 MG/DL (1.5-2.4); PHOSPHORUS 5.8 MG/DL (2.3-4.5); POTASSIUM 4.9 MMOL/L (3.5-5.1); SODIUM 139 MMOL/L (135-145); TOTAL CARBON DIOXIDE 31.4 MMOL/L (24-32); TOTAL PROTEIN 5.9 G/DL (6.4-8.2); eGFR 8 ML/MIN
[2018-12-11 05:22] LABS: ANISOCYTOSIS 2+; PLATELET ESTIMATE DECREASED
[2018-12-11 05:23] LABS: POIKILOCYTOSIS FEW; POLYCHROMASIA 2+; STOMATOCYTES FEW
--- NOTE | 2018-12-11 06:40 | NUR ---
Patient in room [facility] 340. I have received report from JOHN Shah and had the opportunity to ask questions and assume patient care.
[2018-12-11 07:12] VITALS: BP 111/38
[2018-12-11] MEDS: famotidine 20mg tablet PO SCH ×2 (08:24→21:04)
[2018-12-11] MEDS: pregabalin 75mg capsule PO SCH (08:24)
[2018-12-11] MEDS: ringers solution, lacted 1,000 ML IV SCH (08:26)
[2018-12-11] MEDS: sevelamer carbonate 800mg tablet PO SCH ×3 (08:36→17:24)
[2018-12-11] MEDS ORDERED: HYDROmorphone 1 mg/ml syringe ONE (10:08)
[2018-12-11 11:00] VITALS: BP 121/30
--- NOTE | 2018-12-11 11:00 | NUR ---
Discussed this patient's trending lower blood pressure with charge nurse- having to take BP on pt's lower legs. Patient's last BP 121/30 with map of 61. Charge nurse advised to continue taking BP on leg and notify Bridger when he rounds.
[2018-12-11] MEDS ORDERED: HYDROmorphone 1 mg/ml syringe IV PRN (13:33)
--- NOTE | 2018-12-11 16:00 | NUR ---
Notified both Dr. Sparks and Dr. Simpson of patient's low HR 51 and then 58, of patient's low blood pressure and that nursing staff having to take BP on patient's lower leg. Notified Dr. Simpson that patient has LR ordered for rate of 50 mL/hr. Patient last diastolic BP 30, systolic 120. Per MD orders, discontinued fluid orders. Will continue to monitor and notify MD of any further changes per Dr. Simpson.
[2018-12-11] MEDS: HYDROmorphone 1 mg/ml syringe ONE ×2 (16:10→16:39)
[2018-12-11 18:00] VITALS: BP 129/51
[2018-12-11] MEDS: insulin Lispro (HumaLOG) vial - multi-dose SQ SCH (18:40)
--- NOTE | 2018-12-11 18:40 | NUR ---
Problems reprioritized. Patient report given, questions answered & plan of care reviewed with JOHN MORTON.
--- NOTE | 2018-12-11 18:41 | NUR ---
Patient in room [facility] 340. I have received report from Mikal LOPEZ and had the opportunity to ask questions and assume patient care.
[2018-12-11] MEDS: insulin glargine (Lantus) pen - multi-dose SQ SCH (21:24)
[2018-12-12] VITALS: BP 123/49
[2018-12-12 04:46] LABS: BASOPHILS % (AUTO) 0.8 % (0-1); EOSINOPHILS # (AUTO) 0.1 X10'3 (0-0.9); EOSINOPHILS % (AUTO) 1.9 % (0-6); HEMATOCRIT 24.7 % (35.0-45.0); LYMPHOCYTES # (AUTO) 0.9 X10'3 (1.1-4.8); LYMPHOCYTES % (AUTO) 20.2 % (21-51); MEAN CORPUSCULAR HEMOGLOBIN 32.1 PG (27.0-31.0); MEAN CORPUSCULAR HGB CONC 32.3 g/dL (33.0-36.5); MEAN CORPUSCULAR VOLUME 99.4 FL (78-98); MEAN PLATELET VOLUME 9.1 FL (7.4-10.4); MONOCYTES # (AUTO) 0.5 X10'3 (0-0.9); MONOCYTES % (AUTO) 10.9 % (2-12); NEUTROPHILS # (AUTO) 3.1 X10'3 (1.8-7.7); NEUTROPHILS % (AUTO) 66.2 % (42-75); PLATELET COUNT 104 X10'3 (140-440); RED BLOOD COUNT 2.49 X10'6 (4.20-5.60); RED CELL DISTRIBUTION WIDTH 20.4 % (11.5-14.5); WHITE BLOOD COUNT 4.6 X10'3 (4.5-11.0)
[2018-12-12 05:13] LABS: ALANINE AMINOTRANSFERASE 17 U/L (12-78); ALBUMIN 2.9 G/DL (3.4-5.0); ALBUMIN/GLOBULIN RATIO 0.9 (1.1-1.5); ALKALINE PHOSPHATASE 84 IU/L (46-116); ANION GAP 9 (8-16); ASPARTATE AMINO TRANSFERASE 32 U/L (10-37); BILIRUBIN,TOTAL 0.9 MG/DL (0.1-1.0); BLOOD UREA NITROGEN 42 MG/DL (7-18); BUN/CREATININE RATIO 5.9 (6.6-38.0); CALCIUM 7.7 MG/DL (8.5-10.1); CHLORIDE 100 MMOL/L (99-107); CREATININE 7.15 MG/DL (0.40-0.90); GLUCOSE 137 MG/DL (70-104); MAGNESIUM 2.1 MG/DL (1.5-2.4); PHOSPHORUS 7.4 MG/DL (2.3-4.5); POTASSIUM 5.4 MMOL/L (3.5-5.1); SODIUM 139 MMOL/L (135-145); TOTAL CARBON DIOXIDE 29.9 MMOL/L (24-32); TOTAL PROTEIN 6.1 G/DL (6.4-8.2); eGFR 6 ML/MIN
[2018-12-12 05:52] LABS: PLATELET ESTIMATE DECREASED
[2018-12-12 05:53] LABS: ANISOCYTOSIS 3+
--- NOTE | 2018-12-12 06:30 | NUR ---
Problems reprioritized. Patient report given, questions answered & plan of care reviewed with Agata RN.
--- NOTE | 2018-12-12 06:30 | NUR ---
Patient in room [facility] 340. I have received report from JOHN Bazan and had the opportunity to ask questions and assume patient care.
[2018-12-12 08:00] VITALS: BP 114/44
[2018-12-12] MEDS ORDERED: epoetin 20,000 units/ml inj IV ONE (08:00)
[2018-12-12] MEDS ORDERED: heparin 1,000 units/ml 10ml inj HE ONE ×2 (08:00)
[2018-12-12] MEDS ORDERED: heparin 1,000unit/ml 10ml vial 10 ML IV ONE (08:00)
[2018-12-12] MEDS ORDERED: normal saline 1000ml 250 ML IV PRN (08:00)
[2018-12-12] MEDS: famotidine 20mg tablet PO SCH ×2 (08:07→19:28)
[2018-12-12] MEDS: sevelamer carbonate 800mg tablet PO SCH ×3 (08:07→17:30)
[2018-12-12] MEDS: pregabalin 75mg capsule PO SCH (08:07)
[2018-12-12] MEDS: HYDROcodone/acetaminophen 10/325mg tab PO PRN ×2 (08:09→19:28)
--- NOTE | 2018-12-12 09:41 | NUR ---
Patient just now sitting up to eat small bites of her breakfast. blood glucose was 117. patient does not qualify for morning insulin will recheck at 1200.
[2018-12-12] MEDS: ROPINIRole 1mg tablet PO PRN (11:27)
[2018-12-12] MEDS: HYDROmorphone 1 mg/ml syringe IV PRN (11:32)
[2018-12-12 12:00] VITALS: BP 127/70
--- NOTE | 2018-12-12 13:05 | NUR ---
Patient not eating, Accu check 111, no coverage needed.
--- NOTE | 2018-12-12 17:00 | NUR ---
Dr. Sparks saw pt and stated OK for pt to go to rehab in am 12/13 from surgical standpoint.
--- NOTE | 2018-12-12 18:14 | NUR ---
Problems reprioritized. Patient report given, questions answered & plan of care reviewed with JOHN Bazan.
--- NOTE | 2018-12-12 18:58 | NUR ---
Patient in room [facility] 340. I have received report from Agata LOPEZ and had the opportunity to ask questions and assume patient care.
[2018-12-12 19:00] VITALS: BP 129/55
[2018-12-12] MEDS: insulin Lispro (HumaLOG) vial - multi-dose SQ SCH (19:26)
--- NOTE | 2018-12-12 21:39 | NUR ---
Med not given on day shift
[2018-12-12] MEDS: insulin glargine (Lantus) pen - multi-dose SQ SCH (21:47)
[2018-12-13] VITALS: BP 115/54
[2018-12-13] MEDS: HYDROcodone/acetaminophen 10/325mg tab PO PRN ×3 (01:48→21:05)
[2018-12-13 04:42] LABS: BASOPHILS % (AUTO) 1.1 % (0-1); EOSINOPHILS # (AUTO) 0.1 X10'3 (0-0.9); EOSINOPHILS % (AUTO) 2.3 % (0-6); HEMOGLOBIN 7.9 g/dl (12.0-16.0); LYMPHOCYTES # (AUTO) 0.7 X10'3 (1.1-4.8); LYMPHOCYTES % (AUTO) 17.1 % (21-51); MEAN CORPUSCULAR HEMOGLOBIN 32.8 PG (27.0-31.0); MEAN CORPUSCULAR HGB CONC 32.9 g/dL (33.0-36.5); MEAN CORPUSCULAR VOLUME 99.9 FL (78-98); MEAN PLATELET VOLUME 8.8 FL (7.4-10.4); MONOCYTES # (AUTO) 0.5 X10'3 (0-0.9); MONOCYTES % (AUTO) 11.4 % (2-12); NEUTROPHILS # (AUTO) 2.9 X10'3 (1.8-7.7); NEUTROPHILS % (AUTO) 68.1 % (42-75); PLATELET COUNT 97 X10'3 (140-440); RED CELL DISTRIBUTION WIDTH 20.4 % (11.5-14.5); WHITE BLOOD COUNT 4.3 X10'3 (4.5-11.0)
[2018-12-13 05:08] LABS: ALANINE AMINOTRANSFERASE 20 U/L (12-78); ALBUMIN 2.8 G/DL (3.4-5.0); ALBUMIN/GLOBULIN RATIO 0.8 (1.1-1.5); ALKALINE PHOSPHATASE 85 IU/L (46-116); ANION GAP 9 (8-16); ASPARTATE AMINO TRANSFERASE 35 U/L (10-37); BLOOD UREA NITROGEN 25 MG/DL (7-18); CALCIUM 7.8 MG/DL (8.5-10.1); CHLORIDE 101 MMOL/L (99-107); CREATININE 4.96 MG/DL (0.40-0.90); GLUCOSE 149 MG/DL (70-104); PHOSPHORUS 6.4 MG/DL (2.3-4.5); POTASSIUM 4.6 MMOL/L (3.5-5.1); SODIUM 138 MMOL/L (135-145); TOTAL CARBON DIOXIDE 27.6 MMOL/L (24-32); TOTAL PROTEIN 6.2 G/DL (6.4-8.2); eGFR 9 ML/MIN
[2018-12-13 05:17] LABS: PLATELET ESTIMATE DECREASED
[2018-12-13 05:20] LABS: POLYCHROMASIA FEW
[2018-12-13] MEDS: HYDROmorphone 1 mg/ml syringe IV PRN ×3 (05:42→23:19)
--- NOTE | 2018-12-13 06:40 | NUR ---
Problems reprioritized. Patient report given, questions answered & plan of care reviewed with RASHARD RN.
--- NOTE | 2018-12-13 06:42 | NUR ---
Patient in room [facility] 340. I have received report from JOHN Bazan and had the opportunity to ask questions and assume patient care.
[2018-12-13] MEDS: famotidine 20mg tablet PO SCH ×2 (07:53→20:55)
[2018-12-13] MEDS: pregabalin 75mg capsule PO SCH (07:53)
[2018-12-13] MEDS: sevelamer carbonate 800mg tablet PO SCH ×3 (07:53→18:00)
[2018-12-13 08:00] VITALS: BP 120/48
[2018-12-13 12:00] VITALS: BP 165/84
[2018-12-13] MEDS: furosemide 10 MG/1 ML 10ml inj IV SCH ×3 (16:00→23:17)
[2018-12-13 18:00] VITALS: BP 108/50
--- NOTE | 2018-12-13 18:37 | NUR ---
Problems reprioritized. Patient report given, questions answered & plan of care reviewed with Florida Sexton RN.
[2018-12-13] MEDS: insulin Lispro (HumaLOG) vial - multi-dose SQ SCH (19:21)
[2018-12-13] MEDS: insulin glargine (Lantus) pen - multi-dose SQ SCH (21:04)
[2018-12-13] MEDS: ROPINIRole 1mg tablet PO PRN (21:10)
--- NOTE | 2018-12-13 23:03 | NUR ---
Spoke to April to confirm administration of lasix with urine output of approximately 10mL's this shift. States to continue administration of medication.
[2018-12-13 23:19] VITALS: BP 125/64
[2018-12-13 23:52] VITALS: BP 125/64
--- NOTE | 2018-12-14 06:28 | NUR ---
Problems reprioritized. Patient report given, questions answered & plan of care reviewed with JOHN Fay.
--- NOTE | 2018-12-14 06:35 | NUR ---
Patient in room [facility] 340. I have received report from Florida Sexton RN and had the opportunity to ask questions and assume patient care.
[2018-12-14] MEDS: furosemide 10 MG/1 ML 10ml inj IV SCH ×2 (06:50→16:40)
[2018-12-14 07:00] VITALS: BP 141/43
[2018-12-14] MEDS: HYDROmorphone 1 mg/ml syringe IV PRN ×4 (07:44→22:52)
[2018-12-14] MEDS: famotidine 20mg tablet PO SCH ×2 (07:44→19:18)
[2018-12-14] MEDS ORDERED: epoetin 20,000 units/ml inj IV ONE (08:00)
[2018-12-14] MEDS ORDERED: heparin 1,000 units/ml 10ml inj HE ONE ×2 (08:00)
[2018-12-14] MEDS ORDERED: normal saline 1000ml 250 ML IV PRN (08:00)
[2018-12-14] MEDS: pregabalin 75mg capsule PO SCH (08:00)
[2018-12-14] MEDS ORDERED: heparin 1,000unit/ml 10ml vial 10 ML IV ONE (08:00)
[2018-12-14] MEDS: sevelamer carbonate 800mg tablet PO SCH ×3 (08:30→19:18)
--- NOTE | 2018-12-14 09:10 | NUR ---
Patient currently sleeping, did not ate breakfast. Renvela not given as it supposed to be given with meals
[2018-12-14 09:12] LABS: HEMATOCRIT 25.1 % (35.0-45.0); HEMOGLOBIN 8.1 g/dl (12.0-16.0); MEAN CORPUSCULAR HEMOGLOBIN 31.8 PG (27.0-31.0); MEAN CORPUSCULAR HGB CONC 32.1 g/dL (33.0-36.5); PLATELET COUNT 109 X10'3 (140-440); RED BLOOD COUNT 2.54 X10'6 (4.20-5.60); RED CELL DISTRIBUTION WIDTH 20.5 % (11.5-14.5); WHITE BLOOD COUNT 4.1 X10'3 (4.5-11.0)
--- NOTE | 2018-12-14 10:44 | NUR ---
Reassessment: Diet has been advanced to renal and pt with slightly fluctuating PO intake however overall 75-100% meeting nutrient needs. Noted that pt with 0% PO intake at breakfast this morning, per RN notes pt sleeping during meal time. BG levels pretty well controlled with range 111-196 12/12-present. Pt would benefit from carb controlled diet if BG levels begin in increase. Patient's wt is +5.1 kg using standing scale vs bed scale. Per MD notes Lasix dose to increase d/t difficulty removing fluid with dialysis. [facility] 12/13. Will continue to follow. Rec: 1. Continue renal diet; monitor need for addition of CHO controlled diet 2. monitor for ONS needs 3. wt w/ HD Addendum: 12/14/18 at [address] Amended: Links added.
[2018-12-14] MEDS: insulin Lispro (HumaLOG) vial - multi-dose SQ SCH (12:56)
[2018-12-14] MEDS ORDERED: HYDROmorphone inj. 0.5 MG/0.5 ML DISP.SYRIN IV ONE (15:35)
[2018-12-14 16:38] VITALS: BP 146/73
[2018-12-14 18:00] VITALS: BP 118/47
--- NOTE | 2018-12-14 18:35 | NUR ---
Problems reprioritized. Patient report given, questions answered & plan of care reviewed with Florida Sexton RN.
[2018-12-14] MEDS: HYDROcodone/acetaminophen 10/325mg tab PO PRN (19:17)
[2018-12-14] MEDS: insulin glargine (Lantus) pen - multi-dose SQ SCH (21:51)
[2018-12-14] MEDS: diphenhydrAMINE 25mg capsule PO PRN (21:55)
[2018-12-15] VITALS: BP 170/70
--- NOTE | 2018-12-15 | NUR ---
RR 32; patient was dancing in room with aid to alleviate painful legs.
[2018-12-15] MEDS: HYDROcodone/acetaminophen 10/325mg tab PO PRN ×2 (00:06→07:36)
[2018-12-15] MEDS: furosemide 10 MG/1 ML 10ml inj IV SCH ×2 (00:12→07:35)
[2018-12-15] MEDS: ROPINIRole 1mg tablet PO PRN (00:12)
[2018-12-15 01:30] VITALS: BP 124/74
--- NOTE | 2018-12-15 06:20 | NUR ---
Patient in room [facility] 340. I have received report from Florida Hsu RN and had the opportunity to ask questions and assume patient care.
[2018-12-15 06:30] VITALS: BP 128/53
--- NOTE | 2018-12-15 06:36 | NUR ---
Problems reprioritized. Patient report given, questions answered & plan of care reviewed with JOHN Kay.
[2018-12-15] MEDS: sevelamer carbonate 800mg tablet PO SCH (07:34)
[2018-12-15] MEDS: pregabalin 75mg capsule PO SCH (07:34)
[2018-12-15] MEDS: famotidine 20mg tablet PO SCH (07:34)
[2018-12-15] MEDS: diphenhydrAMINE 25mg capsule PO PRN (09:38)
--- NOTE | 2018-12-15 10:35 | NUR ---
IV DC'd, tip intact. All belongings sent w/pt. [place] personnel WC to [place].
== END 2018-12-15 14:06 | DRG 252 ==
LOC: ER 15:43 → PCU 3S 23:21 → SUR 3N 12-10 23:28
PROVIDERS: ATTEND Internal Medicine Critical Care Medicine
PROC: BP2T1ZZ Computerized Tomography (CT Scan) of Right Upper Extremity using Low Osmolar Contrast (ICD-10-PCS; 2018-12-10)
PROC: 5A1D70Z Performance of Urinary Filtration, Intermittent, Less than 6 Hours Per Day (ICD-10-PCS; 2018-12-10)
PROC: 03Q70ZZ Repair Right Brachial Artery, Open Approach (ICD-10-PCS; principal; 2018-12-10 16:42)
PROC: 5A1D70Z Performance of Urinary Filtration, Intermittent, Less than 6 Hours Per Day (ICD-10-PCS; 2018-12-12)
PROC: 5A1D70Z Performance of Urinary Filtration, Intermittent, Less than 6 Hours Per Day (ICD-10-PCS; 2018-12-14)
DX: I77.0 Arteriovenous fistula, acquired (principal); N18.6 End stage renal disease; T82.868A Thrombosis due to vascular prosthetic devices, implants and grafts, initial encounter; L76.32 Postprocedural hematoma of skin and subcutaneous tissue following other procedure; I12.0 Hypertensive chronic kidney disease with stage 5 chronic kidney disease or end stage renal disease; E87.5 Hyperkalemia; I25.10 Atherosclerotic heart disease of native coronary artery without angina pectoris; Y83.2 Surgical operation with anastomosis, bypass or graft as the cause of abnormal reaction of the patient, or of later complication, without mention of misadventure at the time of the procedure; G47.33 Obstructive sleep apnea (adult) (pediatric); E11.65 Type 2 diabetes mellitus with hyperglycemia; F17.210 Nicotine dependence, cigarettes, uncomplicated; Z95.5 Presence of coronary angioplasty implant and graft; I25.2 Old myocardial infarction; Z95.1 Presence of aortocoronary bypass graft; Z88.8 Allergy status to other drugs, medicaments and biological substances; Z98.84 Bariatric surgery status; Z79.4 Long term (current) use of insulin; Z79.82 Long term (current) use of aspirin; Z79.899 Other long term (current) drug therapy; Z91.15 Patient's noncompliance with renal dialysis; Y92.89 Other specified places as the place of occurrence of the external cause
CPT/HCPCS: 36415; 73206; 76937; 80053; 82948; 83036; 83735; 84100; 85025; 85027; 85610; 85730; 86885; 86900; 86901; 86920; 87081; 93005; 93931; 96372; 97116; 97162; 97530; 97535; 99285; A4215; A4618; A6446; A6449; A7000; G0257; G0378; J0461; J1170; J1265; J1644; J1815; J1940; J2250; J2405; J3010; J3370; J3490; J7040; J7050; J7120; Q0163; Q4081; Q9967

== ENCOUNTER 2019-02-12 08:42 | Day surgery (SDC) | payer MEDICARE, MEDICAID ==
[~2019-02-12] VITALS: Ht 162.6 cm; Wt 105.9 kg
[2019-02-12] VITALS (10 sets, daily range): BP systolic 114–163; BP diastolic 47–64
[~2019-02-12 08:42] MED LIST changes: +HYDR-4383 PO
[2019-02-12] MEDS ORDERED: heparin 1,000 UNITS/NS 500ml 500 ML ICATH ONE (08:50)
[2019-02-12] MEDS ORDERED: midazolam 2 mg/2 ml injection IV PRN (08:50)
[2019-02-12] MEDS ORDERED: LIDOcaine 1%/PF 5ML 10 MG/ML VIAL SQ ONE (08:50)
[2019-02-12] MEDS ORDERED: fentaNYL/PF 50MCG/1 ML 2ML syringe IV PRN (08:50)
[2019-02-12] MEDS ORDERED: HYDR-4383 PO (09:08)
[2019-02-12] MEDS ORDERED: normal saline 1000ml 1,000 ML IV PRN (09:30)
[2019-02-12 09:32] LABS: HEMOGLOBIN 10.8 g/dl (12.0-16.0)
[2019-02-12 09:34] LABS: HEMATOCRIT 33.6 % (35.0-45.0); MEAN CORPUSCULAR HEMOGLOBIN 30.8 PG (27.0-31.0); MEAN CORPUSCULAR HGB CONC 32.3 g/dL (33.0-36.5); MEAN CORPUSCULAR VOLUME 95.6 FL (78-98); MEAN PLATELET VOLUME 10.5 FL (7.4-10.4); PLATELET COUNT 61 X10'3 (140-440); RED BLOOD COUNT 3.52 X10'6 (4.20-5.60); RED CELL DISTRIBUTION WIDTH 17.1 % (11.5-14.5); WHITE BLOOD COUNT 3.2 X10'3 (4.5-11.0)
[2019-02-12 09:43] LABS: ALBUMIN 3.4 G/DL (3.4-5.0); ANION GAP 7 (8-16); BLOOD UREA NITROGEN 51 MG/DL (7-18); BUN/CREATININE RATIO 10.1 (6.6-38.0); CALCIUM 8.4 MG/DL (8.5-10.1); CHLORIDE 103 MMOL/L (99-107); CREATININE 5.06 MG/DL (0.40-0.90); GLUCOSE 393 MG/DL (70-104); POTASSIUM 4.5 MMOL/L (3.5-5.1); SODIUM 144 MMOL/L (135-145); TOTAL CARBON DIOXIDE 34.2 MMOL/L (24-32); eGFR 8 ML/MIN
[2019-02-12] MEDS ORDERED: fentaNYL/PF 50MCG/1 ML 2ML syringe ONE ×4 (09:49→12:18)
[2019-02-12] MEDS ORDERED: iohexol 300mg/ml 100ml inj. ONE (09:49)
[2019-02-12] MEDS ORDERED: midazolam 2 mg/2 ml injection ONE ×2 (09:49→10:53)
[2019-02-12] MEDS ORDERED: heparin 1,000 UNITS/NS 500ml 500 ML ONE (09:49)
[2019-02-12] MEDS ORDERED: LIDOcaine 1%/PF 5ML 10 MG/ML VIAL ONE ×2 (09:49→12:04)
[2019-02-12 10:30] LABS: ANISOCYTOSIS 1+; LARGE PLATELETS FEW; PLATELET ESTIMATE DECREASED; TOTAL CELLS COUNTED 100
[2019-02-12] MEDS ORDERED: nitroGLYCERIN-Tridil 50MG/D5W 250 ML IV ONE (11:24)
[2019-02-12] MEDS ORDERED: heparin 1,000unit/ml 10ml vial 10 ML ONE (11:45)
[2019-02-12] MEDS ORDERED: hydrALAZINE 20mg/ml inj. IV ONE ×2 (12:00→12:13)
--- NOTE | 2019-02-12 13:38 | NUR ---
called dr. terry as the patients ride could not come past 1800 tonight as dc orders are for 1900, and she needs to be transferred home with wheelchair, he stated patient could leave at 1800. telephone order verified. patient was placed in a sling per md orders for 6 hours until dc then patient can take off.
== END 2019-02-12 18:00 | disposition home or self-care (01) ==
LOC: SSTAY O 08:42
PROVIDERS: ATTEND Radiology Vascular & Interventional Radiology
DX: T82.858A Stenosis of other vascular prosthetic devices, implants and grafts, initial encounter (principal); I25.2 Old myocardial infarction; I10 Essential (primary) hypertension; E78.00 Pure hypercholesterolemia, unspecified; E11.9 Type 2 diabetes mellitus without complications; Z88.8 Allergy status to other drugs, medicaments and biological substances; Z79.82 Long term (current) use of aspirin; Z79.899 Other long term (current) drug therapy; Z79.4 Long term (current) use of insulin; Z86.73 Personal history of transient ischemic attack (TIA), and cerebral infarction without residual deficits; Z95.5 Presence of coronary angioplasty implant and graft; Z98.890 Other specified postprocedural states; Z87.891 Personal history of nicotine dependence; Y83.2 Surgical operation with anastomosis, bypass or graft as the cause of abnormal reaction of the patient, or of later complication, without mention of misadventure at the time of the procedure; Y82.8 Other medical devices associated with adverse incidents
CPT/HCPCS: 36415; 36902; 80048; 82948; 85025; 85610; 99152; 99153; A6213; C1725; C1769; C1894; J0360; J1644; J2250; J3010; J3490; J7030; Q9967

== ENCOUNTER 2019-03-31 21:19 | Inpatient (IN) | payer MEDICARE, MEDICAID ==
[~2019-03-31] VITALS: Ht 162.6 cm; Wt 101.4 kg
[2019-03-31] MEDS ORDERED: normal saline 1000ML IV soln IVB ONE (21:30)
[2019-03-31] MEDS ORDERED: acetaminophen 325mg tablet PO STA (21:35)
[2019-03-31 21:40] LABS: BASOPHILS # (AUTO) 0.1 X10'3 (0-0.2); BASOPHILS % (AUTO) 1.8 % (0-1); EOSINOPHILS # (AUTO) 0.1 X10'3 (0-0.9); EOSINOPHILS % (AUTO) 2.5 % (0-6); HEMATOCRIT 31.1 % (35.0-45.0); HEMOGLOBIN 10.2 g/dl (12.0-16.0); LYMPHOCYTES # (AUTO) 0.4 X10'3 (1.1-4.8); LYMPHOCYTES % (AUTO) 14.9 % (21-51); MEAN CORPUSCULAR HEMOGLOBIN 30.8 PG (27.0-31.0); MEAN CORPUSCULAR HGB CONC 32.8 g/dL (33.0-36.5); MEAN CORPUSCULAR VOLUME 93.9 FL (78-98); MONOCYTES # (AUTO) 0.4 X10'3 (0-0.9); MONOCYTES % (AUTO) 12.1 % (2-12); NEUTROPHILS % (AUTO) 68.7 % (42-75); PLATELET COUNT 85 X10'3 (140-440); RED BLOOD COUNT 3.32 X10'6 (4.20-5.60); RED CELL DISTRIBUTION WIDTH 18.5 % (11.5-14.5); WHITE BLOOD COUNT 2.9 X10'3 (4.5-11.0)
[2019-03-31] MEDS ORDERED: CefTRIAXone 2gm/D5W 50ml 50 ML IV ONE (21:55)
[2019-03-31 21:59] LABS: ALANINE AMINOTRANSFERASE 12 U/L (12-78); ALBUMIN/GLOBULIN RATIO 0.9 (1.1-1.5); ALKALINE PHOSPHATASE 109 IU/L (46-116); ANION GAP 9 (8-16); ASPARTATE AMINO TRANSFERASE 14 U/L (10-37); BLOOD UREA NITROGEN 59 MG/DL (7-18); BUN/CREATININE RATIO 8.2 (6.6-38.0); CALCIUM 8.3 MG/DL (8.5-10.1); CHLORIDE 103 MMOL/L (99-107); CREATININE 7.22 MG/DL (0.40-0.90); GLUCOSE 280 MG/DL (70-104); POTASSIUM 4.8 MMOL/L (3.5-5.1); SODIUM 140 MMOL/L (135-145); TOTAL CARBON DIOXIDE 27.7 MMOL/L (24-32); TOTAL PROTEIN 6.4 G/DL (6.4-8.2); eGFR 6 ML/MIN
[2019-03-31 22:09] LABS: MAGNESIUM 1.9 MG/DL (1.5-2.4)
[2019-03-31 22:10] LABS: ANISOCYTOSIS 2+; PLATELET ESTIMATE DECREASED; TOTAL CELLS COUNTED 100
[2019-03-31 22:11] LABS: PARTIAL THROMBOPLASTIN TIME 26 SECONDS (22-32)
[2019-03-31 22:55] LABS: CLARITY,URINE CLOUDY (Clear); COLOR,URINE YELLOW (Yellow); GLUCOSE, URINE NEGATIVE (Neg); KETONES,URINE NEGATIVE (Neg); LEUKOCYTE ESTERASE ,URINE MODERATE (Neg); NITRITES, URINE NEGATIVE (Neg); OCCULT BLOOD,URINE SMALL (Neg); PROTEIN,URINE 100 mg/dl (Neg); UROBILINOGEN,URINE 0.2 E.U/dL (0.2-1.0)
[2019-03-31 23:00] LABS: UA COLLECTION TYPE FOLEY CATH
[2019-03-31 23:06] LABS: BACTERIA,URINE 4+ /HPF (Neg); RBC,URINE 0-2 /HPF (0-2); WBC,URINE 50-100 /HPF (0-4)
[2019-03-31 23:07] LABS: MUCUS STRANDS NONE SEEN /LPF (Neg); SQUAMOUS EPITHELIAL CELL,UR NONE SEEN /LPF (FEW)
--- NOTE | 2019-04-01 00:13 | NUR ---
PT HUNGRY, PROVIDED HER SANDWICH AND MILK, SHE IS SITTING EOB.
[2019-04-01] MEDS ORDERED: INSU100V9 SQ (00:19)
[2019-04-01] MEDS ORDERED: acetaminophen 325mg tablet PO PRN (01:00)
[2019-04-01] MEDS ORDERED: ondansetron/PF 4mg/2ml inj IV PRN (01:00)
[2019-04-01] MEDS ORDERED: HYDROcodone/acetaminophen 5mg/325mg tablet PO PRN (01:35)
[2019-04-01] MEDS ORDERED: dextrose 50%-water 50ml dispensing syringe IV PRN ×2 (01:40)
[2019-04-01] MEDS ORDERED: dextrose ORAL solution 15 GM/59 ML bottle PO PRN ×2 (01:40)
[2019-04-01] MEDS ORDERED: glucagon, human recombinant 1mg kit SUBCUT PRN (01:40)
[2019-04-01] MEDS ORDERED: MESSAGE TO PHARMACY PO ONE (01:40)
[2019-04-01] MEDS: ROPINIRole 0.25mg tablet PO PRN (03:10)
[2019-04-01] MEDS ORDERED: tizanidine 4mg tablet PO PRN (04:05)
--- NOTE | 2019-04-01 06:55 | NUR ---
Patient in room ED 6. I have received report from Hodan and had the opportunity to ask questions and assume patient care.
[2019-04-01 07:00] VITALS: BP 150/64
--- NOTE | 2019-04-01 07:24 | NUR ---
Patient oriented to new environment, placed on tele and vital signs obtained. Patient resting comfortably at this time.
[2019-04-01] MEDS: amLODIPine 5mg tablet PO SCH (08:00)
[2019-04-01] MEDS: sevelamer carbonate 800mg tablet PO SCH ×3 (08:00→19:19)
[2019-04-01] MEDS: doxazosin mesylate 2mg tablet PO SCH (08:00)
[2019-04-01] MEDS ORDERED: heparin 1,000unit/ml 10ml vial 10 ML IV ONE (08:32)
[2019-04-01] MEDS ORDERED: epoetin 20,000 units/ml inj IV ONE (08:35)
[2019-04-01] MEDS ORDERED: albumin (human) 25% 100ml IV 100 ML IV PRN (08:35)
[2019-04-01] MEDS ORDERED: heparin 1,000 units/ml 10ml inj IV ONE (08:35)
[2019-04-01] MEDS ORDERED: heparin 1,000 units/ml 10ml inj HE ONE ×2 (08:40)
[2019-04-01] MEDS: CefTRIAXone 2gm/D5W 50ml 50 ML IV SCH (08:43)
[2019-04-01] MEDS: allopurinol 100mg tablet PO SCH (08:43)
[2019-04-01] MEDS: atorvastatin 20mg tablet PO SCH (08:43)
[2019-04-01] MEDS: famotidine 20mg tablet PO SCH ×2 (08:44→21:21)
[2019-04-01] MEDS: pregabalin 75mg capsule PO SCH (08:44)
[2019-04-01] MEDS: aspirin 81mg tab.chew PO SCH (08:44)
[2019-04-01 10:55] LABS: HEMOGLOBIN A1C 11.5 % (4.5-6.2)
[2019-04-01 11:00] VITALS: BP 127/63
--- NOTE | 2019-04-01 11:06 | NUR ---
TERESITA Hannah not administered, called pharmacy [facility] and sent message and medication has yet to be sent up, when calling pharmacy stated it's on it's way. Patient is aware, however, patient did not eat but a bite for breakfast therefore, holding is necessary.
[2019-04-01] MEDS: insulin Lispro (HumaLOG) vial - multi-dose SQ SCH ×2 (14:55→19:22)
[2019-04-01 15:00] VITALS: BP 143/67
[2019-04-01 18:00] VITALS: BP 134/62
--- NOTE | 2019-04-01 18:00 | NUR ---
Patient in room PCU 3019. I have received report from Trinh LOPEZ and had the opportunity to ask questions and assume patient care.
--- NOTE | 2019-04-01 18:29 | NUR ---
Problems reprioritized. Patient report given, questions answered & plan of care reviewed with Kia.
[2019-04-01] MEDS ORDERED: pregabalin 75mg capsule PO SCH (21:00)
[2019-04-01] MEDS ORDERED: insulin glargine (Lantus) pen - multi-dose SQ SCH (21:00)
[2019-04-01 22:00] VITALS: BP 127/54
[2019-04-02 02:00] VITALS: BP 121/48
[2019-04-02] MEDS: ROPINIRole 0.25mg tablet PO PRN (02:27)
--- NOTE | 2019-04-02 06:07 | NUR ---
Problems reprioritized. Patient report given, questions answered & plan of care reviewed with Trinh LOPEZ.
[2019-04-02 06:22] LABS: EOSINOPHILS # (AUTO) 0.1 X10'3 (0-0.9); EOSINOPHILS % (AUTO) 3.1 % (0-6); HEMATOCRIT 27.3 % (35.0-45.0); HEMOGLOBIN 8.9 g/dl (12.0-16.0); LYMPHOCYTES # (AUTO) 0.9 X10'3 (1.1-4.8); LYMPHOCYTES % (AUTO) 31.4 % (21-51); MEAN CORPUSCULAR HEMOGLOBIN 30.6 PG (27.0-31.0); MEAN CORPUSCULAR HGB CONC 32.5 g/dL (33.0-36.5); MEAN CORPUSCULAR VOLUME 94.2 FL (78-98); MEAN PLATELET VOLUME 10.4 FL (7.4-10.4); MONOCYTES # (AUTO) 0.4 X10'3 (0-0.9); MONOCYTES % (AUTO) 14.8 % (2-12); NEUTROPHILS # (AUTO) 1.4 X10'3 (1.8-7.7); NEUTROPHILS % (AUTO) 49.7 % (42-75); PLATELET COUNT 71 X10'3 (140-440); RED CELL DISTRIBUTION WIDTH 18.5 % (11.5-14.5); WHITE BLOOD COUNT 2.9 X10'3 (4.5-11.0)
--- NOTE | 2019-04-02 06:34 | NUR ---
Patient in room PCU 3019. I have received report from Cee and had the opportunity to ask questions and assume patient care.
[2019-04-02] MEDS ORDERED: ROPINIRole 1mg tablet PO PRN (06:40)
[2019-04-02 06:51] LABS: ALANINE AMINOTRANSFERASE 9 U/L (12-78); ALBUMIN 2.6 G/DL (3.4-5.0); ALBUMIN/GLOBULIN RATIO 0.8 (1.1-1.5); ALKALINE PHOSPHATASE 100 IU/L (46-116); ANION GAP 9 (8-16); ASPARTATE AMINO TRANSFERASE 19 U/L (10-37); BILIRUBIN,TOTAL 0.5 MG/DL (0.1-1.0); BLOOD UREA NITROGEN 42 MG/DL (7-18); BUN/CREATININE RATIO 8.8 (6.6-38.0); CALCIUM 7.9 MG/DL (8.5-10.1); CHLORIDE 103 MMOL/L (99-107); CREATININE 4.78 MG/DL (0.40-0.90); GLUCOSE 156 MG/DL (70-104); MAGNESIUM 1.9 MG/DL (1.5-2.4); PHOSPHORUS 4.8 MG/DL (2.3-4.5); POTASSIUM 3.7 MMOL/L (3.5-5.1); SODIUM 141 MMOL/L (135-145); TOTAL CARBON DIOXIDE 28.9 MMOL/L (24-32); TOTAL PROTEIN 5.7 G/DL (6.4-8.2); eGFR 9 ML/MIN
[2019-04-02 07:00] VITALS: BP 119/40
[2019-04-02 07:09] LABS: TOTAL CELLS COUNTED 100
[2019-04-02 07:11] LABS: ANISOCYTOSIS 2+; PLATELET ESTIMATE DECREASED
[2019-04-02 07:12] LABS: POLYCHROMASIA 1+
[2019-04-02 07:13] LABS: ELLIPTOCYTES FEW; TEAR DROP CELLS FEW
[2019-04-02 07:14] LABS: SPHEROCYTES FEW
[2019-04-02] MEDS ORDERED: famotidine 10mg tablet PO SCH (08:00)
[2019-04-02] MEDS: CefTRIAXone 2gm/D5W 50ml 50 ML IV SCH (08:04)
[2019-04-02] MEDS: aspirin 81mg tab.chew PO SCH (08:06)
[2019-04-02] MEDS: doxazosin mesylate 2mg tablet PO SCH (08:06)
[2019-04-02] MEDS: atorvastatin 20mg tablet PO SCH (08:06)
[2019-04-02] MEDS: amLODIPine 5mg tablet PO SCH (08:07)
[2019-04-02] MEDS: sevelamer carbonate 800mg tablet PO SCH ×2 (08:07→12:16)
[2019-04-02] MEDS: pregabalin 75mg capsule PO SCH (08:07)
[2019-04-02] MEDS: allopurinol 100mg tablet PO SCH (08:07)
[2019-04-02] MEDS: insulin Lispro (HumaLOG) vial - multi-dose SQ SCH (09:18)
[2019-04-02] MEDS ORDERED: pneumococcal 23-VAL P-sac vacc 25 mcg/0.5ml vial IMVAC ONE (10:00)
[2019-04-02 11:00] VITALS: BP 138/47
[2019-04-02 15:00] VITALS: BP 135/43
--- NOTE | 2019-04-02 17:16 | NUR ---
Patient was cleared to discharge home. PIV removed and discharge instructions reviewed with patient. Nursing explained the importance of checking her blood glucose, following up her dialysis schedule and adhering to her current diet. When asking who her primary physician was, she stated, "I don't need you to set me an appointment I can do it." Nursing asked again to explain the importance of transitional care and she declined. Patient stated she already has her dialysis scheduled and will be getting picked up at 5 AM. Called [facility] and verified that to be true. Patient left in stable condition.
--- NOTE | 2019-04-02 17:16 | NUR ---
Pt with A1c 11.5, up from 10.4 in November of this year per records, seen at bedside. Pt reports she recently stopped managing her DM because she was with her daughter who doesn't manage her DM well and pt decided to do the same thing at that time. Pt reports she is now trying to be better about managing her DM through diet. Pt reports she was still taking her DM medications per rx during that time and checking her BG levels 2-3 times a day with resulting numbers in the 300s. Pt provided with written and verbal DM education with referral to outpatient DM class and RD contact information. Pt reports difficulty with meals r/t current diet order. Pt documented with 75-100% PO intake on renal diet likely meeting nutrient needs. D/w MD recommendation for the addition of the CHO controlled diet. Pt denies food allergies, difficulty chewing/swallowing, or constipation/diarrhea. Pt reports [facility] [employer] however denies GI symptoms or nutrition therapy for constipation at this time. Will continue to follow. Addendum: 04/02/19 at [address] Amended: Links added.
== END 2019-04-02 17:03 | disposition home health service (06) | DRG 640 ==
LOC: ER 21:19 → ED HOLD 04-01 00:57 → PCU 3S 04-01 07:05
PROVIDERS: ADMIT Internal Medicine Critical Care Medicine; ATTEND Internal Medicine Critical Care Medicine
PROC: 5A1D70Z Performance of Urinary Filtration, Intermittent, Less than 6 Hours Per Day (ICD-10-PCS; 2019-04-01)
PROC: 3E0234Z Introduction of Serum, Toxoid and Vaccine into Muscle, Percutaneous Approach (ICD-10-PCS; principal; 2019-04-02)
DX: E87.70 Fluid overload, unspecified (principal); N18.6 End stage renal disease; N39.0 Urinary tract infection, site not specified; J81.1 Chronic pulmonary edema; D61.818 Other pancytopenia; R09.02 Hypoxemia; F17.210 Nicotine dependence, cigarettes, uncomplicated; Z99.2 Dependence on renal dialysis; Z23 Encounter for immunization; Z99.81 Dependence on supplemental oxygen; Z88.8 Allergy status to other drugs, medicaments and biological substances; Z79.899 Other long term (current) drug therapy; Z79.82 Long term (current) use of aspirin; Z79.4 Long term (current) use of insulin
CPT/HCPCS: 36415; 71045; 80053; 81001; 82948; 83036; 83605; 83735; 83880; 84100; 84145; 84439; 84443; 84484; 85025; 85610; 85730; 87040; 87077; 87088; 87186; 90732; 93005; 96365; 99285; G0257; G0378; J0696; J1644; J1815; Q4081

== ENCOUNTER 2019-05-22 15:23 | Emergency (ER) | payer MEDICARE, MEDICAID ==
[~2019-05-22] VITALS: Ht 167.6 cm; Wt 110.0 kg
[~2019-05-22 15:23] MED LIST changes: -BENA10TA74 PO; +INSU100V9 SQ
[2019-05-22] MEDS ORDERED: HYDROcodone/acetaminophen 10/325mg tab PO ONE (15:30)
[2019-05-22 17:47] LABS: CLARITY,URINE CLOUDY (Clear); COLOR,URINE YELLOW (Yellow); GLUCOSE, URINE NEGATIVE (Neg); KETONES,URINE NEGATIVE (Neg); LEUKOCYTE ESTERASE ,URINE LARGE (Neg); NITRITES, URINE NEGATIVE (Neg); OCCULT BLOOD,URINE LARGE (Neg); PH,URINE 8.5 (4.8-8.0); PROTEIN,URINE 100 mg/dl (Neg)
[2019-05-22 17:49] LABS: UA COLLECTION TYPE CLN CATCH MIDSTREAM
[2019-05-22] MEDS ORDERED: CEPH250T PO (17:52)
[2019-05-22 17:53] LABS: WBC,URINE TNTC /HPF (0-4)
[2019-05-22 17:54] LABS: BACTERIA,URINE 4+ /HPF (Neg); MUCUS STRANDS NONE SEEN /LPF (Neg); RBC,URINE 50-100 /HPF (0-2); SQUAMOUS EPITHELIAL CELL,UR FEW /LPF (FEW)
[2019-05-22 17:55] LABS: WBC CLUMPS,URINE MODERATE /HPF (NEGATIVE)
[2019-05-22 18:08] VITALS: BP 157/54
== END 2019-05-22 18:12 | disposition home or self-care (01) ==
LOC: ER 15:23
DX: M25.551 Pain in right hip (principal); M25.512 Pain in left shoulder; M25.562 Pain in left knee; M25.552 Pain in left hip; E78.00 Pure hypercholesterolemia, unspecified; I12.0 Hypertensive chronic kidney disease with stage 5 chronic kidney disease or end stage renal disease; N18.6 End stage renal disease; Z99.2 Dependence on renal dialysis; Z98.890 Other specified postprocedural states; Z88.8 Allergy status to other drugs, medicaments and biological substances; Z79.82 Long term (current) use of aspirin; Z79.4 Long term (current) use of insulin; Z79.899 Other long term (current) drug therapy; W01.0XXA Fall on same level from slipping, tripping and stumbling without subsequent striking against object, initial encounter; Y93.89 Activity, other specified; Y92.89 Other specified places as the place of occurrence of the external cause; Y99.8 Other external cause status
CPT/HCPCS: 73030; 73502; 81001; 87088; 99284

== ENCOUNTER 2019-09-01 16:04 | Emergency (ER) | payer MEDICARE, MEDICAID ==
[~2019-09-01] VITALS: Ht 162.6 cm; Wt 106.8 kg
[2019-09-01] MEDS ORDERED: ondansetron 4mg rapidly disintigrating tab PO ONE (17:30)
[2019-09-01] MEDS ORDERED: HYDROcodone/acetaminophen 5mg/325mg tablet PO ONE (17:30)
[2019-09-01 19:31] VITALS: BP 162/77
== END 2019-09-01 19:17 | disposition home or self-care (01) ==
LOC: ER 16:05
DX: M25.561 Pain in right knee (principal); M25.551 Pain in right hip; E78.00 Pure hypercholesterolemia, unspecified; I12.9 Hypertensive chronic kidney disease with stage 1 through stage 4 chronic kidney disease, or unspecified chronic kidney disease; N18.9 Chronic kidney disease, unspecified; Z88.8 Allergy status to other drugs, medicaments and biological substances; Z79.82 Long term (current) use of aspirin; Z79.4 Long term (current) use of insulin; Z79.899 Other long term (current) drug therapy
CPT/HCPCS: 73502; 73564; 99284

== ENCOUNTER 2019-11-15 13:06 | Emergency (ER) | payer MEDICARE, MEDICAID ==
[~2019-11-15] VITALS: Ht 162.6 cm; Wt 151.4 kg
[2019-11-15] MEDS ORDERED: FLUC150T5 PO (14:55)
[2019-11-15 15:12] LABS: CLARITY,URINE TURBID (Clear); COLOR,URINE YELLOW (Yellow); GLUCOSE, URINE 250 mg/dl (Neg); KETONES,URINE TRACE mg/dl (Neg); LEUKOCYTE ESTERASE ,URINE MODERATE (Neg); NITRITES, URINE NEGATIVE (Neg); OCCULT BLOOD,URINE LARGE (Neg); PH,URINE 5.5 (4.8-8.0); PROTEIN,URINE >=300 mg/dl (Neg); UROBILINOGEN,URINE 0.2 E.U/dL (0.2-1.0)
[2019-11-15 15:16] LABS: UA COLLECTION TYPE STRAIGHT CATH
[2019-11-15 15:18] LABS: BACTERIA,URINE 3+ /HPF (Neg); MUCUS STRANDS NONE SEEN /LPF (Neg); SQUAMOUS EPITHELIAL CELL,UR NONE SEEN /LPF (FEW); WBC CLUMPS,URINE MANY /HPF (NEGATIVE); WBC,URINE TNTC /HPF (0-4)
[2019-11-15] MEDS ORDERED: CEPH-572 PO (15:22)
[2019-11-15 17:03] VITALS: BP 135/69
== END 2019-11-15 17:27 | disposition home or self-care (01) ==
LOC: ER 13:07
DX: N39.0 Urinary tract infection, site not specified (principal); B37.3 Candidiasis of vulva and vagina; E78.00 Pure hypercholesterolemia, unspecified; I12.9 Hypertensive chronic kidney disease with stage 1 through stage 4 chronic kidney disease, or unspecified chronic kidney disease; N18.9 Chronic kidney disease, unspecified; Z98.890 Other specified postprocedural states; Z88.8 Allergy status to other drugs, medicaments and biological substances; Z79.82 Long term (current) use of aspirin; Z79.4 Long term (current) use of insulin; Z79.899 Other long term (current) drug therapy
CPT/HCPCS: 81001; 87077; 87088; 87186; 99284